=== PATIENT | male | born 1955 | race Caucasian/White ===

== ENCOUNTER 2021-01-08 13:12 | Emergency (ER) | payer MEDICARE ==
[~2021-01-08] VITALS: Ht 180.3 cm; Wt 90.7 kg
[2021-01-08] MEDS ORDERED: CASIRIVIMAB/IMDEVIMAB 10 ML in SODIUM CHLORIDE 0.9% 100 ML IV ONE (13:45)
== END 2021-01-08 14:21 | disposition home or self-care (01) ==
LOC: ER 13:17
DX: R05 Cough (principal); U07.1 COVID-19; I10 Essential (primary) hypertension
CPT/HCPCS: 99283; J7050